=== PATIENT | male | born 1995 | race Caucasian/White ===

== ENCOUNTER 2017-05-12 02:00 | Inpatient (IN) ==
[2017-05-12] MEDS ORDERED: levETIRAcetam 500 MG/5 ML VIAL IV ONE ×2 (02:05)
[2017-05-12] MEDS ORDERED: SODIUM CHLORIDE 0.9% 1,000 ML IV STA (02:28)
[2017-05-12 02:38] LABS: Basophils # 0.1 10*3/uL (0.0-0.2); Basophils % 0.7 % (0.0-0.8); Eosinophils # 0.7 10*3/uL (0.0-0.87); Eosinophils % 3.6 % (0.00-10.9); Hemoglobin 17.3 GM/DL (14.0-18.0); Immature Granulocytes % 0.4 %; Immature Granulocytes Absolute 0.07 #; Lymphocytes % 30.8 % (21.2-54.2); Mean Corpuscular HGB Conc 35.3 GM/DL (32-36); Mean Corpuscular Hemoglobin 31 PG (27-34); Mean Corpuscular Volume 88.9 FL (87-102); Monocytes # 1.1 10*3/uL (0.11-0.8); Monocytes % 5.6 % (1.7-12.7); Neutrophils # 11.5 10*3/uL (1.4-7.4); Neutrophils % 58.9 % (38.7-73.9); Platelet Count 270 T/CUMM (130-400); Red Blood Count 5.51 MC/CUMM (3.8-5.5); Red Cell Distribution Width 12.3 % (9.3-17.3); White Blood Count 19.5 T/CUMM (4-12)
[2017-05-12] MEDS ORDERED: LORazepam 2 MG/1 ML VIAL ONE (02:51)
[2017-05-12] MEDS ORDERED: LORazepam 2 MG/1 ML VIAL IV STA (02:55)
[2017-05-12 02:56] LABS: Albumin 4.7 G/DL (3.4-5.0); Bilirubin,Total 0.6 MG/DL (0.2-1.0); Calcium 8.8 MG/DL (8.5-10.1); Potassium 3.6 MMOL/L (3.5-5.1); Total Protein 7.8 G/DL (6.4-8.3)
[2017-05-12 03:28] LABS: Apearance,Urine CLEAR (Clear); Bilirubin,Urine Negative (Negative); Blood, Urine Negative (Negative); Glucose,Urine (UA) Negative (Negative); Ketones,Urine Negative (Negative); Nitrite,Urine Negative (Negative); Protein,Urine Negative; RBC,Urine <1 /HPF (0-4); Urine Color Straw (Yellow); Urine Specific Gravity 1.003 (1.001-1.035); Urine Urobilinogen < 2.0 EU/DL (0.2-1.0); WBC,Urine <1 /HPF (0-6)
[2017-05-12 03:41] LABS: Barbiturates Screen,Urine Negative (Negative); Benzodiazepines Screen,Urine Negative (Negative); Cannabinoid Screen,Urine Negative (Negative); Opiate Screen,Urine Negative (Negative); Phencyclidine Screen,Urine Negative (Negative)
[2017-05-12] MEDS ORDERED: LORazepam 2 MG/1 ML VIAL IV PRN (05:18)
[2017-05-12] MEDS ORDERED: SODIUM CHLORIDE 0.9% 2,000 ML IV ONE (05:18)
[2017-05-12] MEDS ORDERED: ALBUTEROL 2.5 MG/3 ML NEB RESP TX PRN (05:18)
[2017-05-12] MEDS ORDERED: ONDANSETRON 4 MG/2 ML VIAL IV PRN (05:18)
[2017-05-12] MEDS ORDERED: SODIUM CHLORIDE 0.9% 1,000 ML IV SCH (05:18)
[2017-05-12] MEDS ORDERED: PANTOPRAZOLE 40 MG VIAL IV SCH (09:00)
[2017-05-12] MEDS: ENOXAPARIN 40 MG/0.4 ML SYRINGE SUBCUT SCH (09:37)
[2017-05-12] MEDS: DOCUSATE SODIUM 100 MG CAPSULE PO SCH ×2 (09:37→20:25)
[2017-05-13] MEDS: ENOXAPARIN 40 MG/0.4 ML SYRINGE SUBCUT SCH (09:54)
[2017-05-13] MEDS: DOCUSATE SODIUM 100 MG CAPSULE PO SCH (09:54)
[2017-05-13 12:16] VITALS: BP 111/58
[2017-05-13] MEDS ORDERED: PHENYTOIN ER 100 MG CAPSULE PO SCH (21:00)
== END 2017-05-13 13:30 | disposition home or self-care (01) | DRG 101 ==
LOC: N.ED 02:00 → N.EDINP 03:53 → N.ICU 05:01 → N.4E 10:58
PROVIDERS: ADMIT Internal Medicine; ATTEND Internal Medicine